=== PATIENT | female | born 1970 | race Caucasian/White ===

== ENCOUNTER → 2016-12-11 | Outpatient (CLI) | payer OTHER | LOC: FIMAGING 10:00 | PROVIDERS: ATTEND Family Medicine | DX: Z12.31 Encounter for screening mammogram for malignant neoplasm of breast (principal); Z80.3 Family history of malignant neoplasm of breast | CPT/HCPCS: G0202 ==

== ENCOUNTER → 2017-01-14 | Outpatient (CLI) | payer OTHER | LOC: BMCIMAGING 15:42 | PROVIDERS: ATTEND Family Medicine | DX: M79.9 Soft tissue disorder, unspecified (principal) ==

== ENCOUNTER 2018-01-05 17:32 | Emergency (ER) | payer OTHER ==
--- NOTE | 2018-01-05 17:50 | EDPHY ---
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 She is complaining of pain to the 2nd 3rd 4th MCP as well as pain at the wrist reproducible with palpation post range of motion. PRIMARY CARE PROVIDER: REVIEW OF SYSTEMS: A ten point review of systems was performed and is negative with the exception of the items mentioned in the HPI PHYSICAL EXAM (Prior to examination, patient consented to physical exam, hands were washed and my usual and customary physical exam procedures followed) 1) GENERAL: Well-developed, well-nourished, alert and oriented. Appears to be in no acute distress. 2) HEAD: Normocephalic 3) HEENT: Pupils equal, round, reactive to light bilaterally. 4) LUNGS: Breathing comfortably. 5) MUSCULOSKELETAL: Soft compartments. No visible abnormality such as erythema or ecchymosis. She is tender to palpation to the dorsal aspect of the wrist. MCPs are nontender Normal coloration. No shortening no malrotation. 6) SKIN: Normal coloration 7) VASCULAR: pulses and cap refill present are brisk 8) NEUROLOGIC: Radial, ulnar, median nerve function intact with no deficits appreciated on exam DIFFERENTIAL DIAGNOSIS: in no particular order including but not limited to fracture, sprain, compartment syndrome Procedure: Splint A Velcro volar splint was applied by ER communication technician. After application of the splint I returned and re-examined the patient. The splint was adequately immobilizing the joint and distal to the splint the patient's circulation and sensation were intact. Patient shows no signs of compartment syndrome. Was given orthopedic precautions. Smoking Status: Never smoked Constitutional: Initial Vital Signs Temperature (C) 36.7 C 01/05/18 17:44 Heart Rate 72 01/05/18 17:44 Respiratory Rate 18 01/05/18 17:44 Blood Pressure 122/95 H 01/05/18 17:44 O2 Sat (%) 100 01/05/18 17:44 O2 Delivery Mode Room Air Allergies/Adverse Reactions: Sulfa (Sulfonamide Antibiotics) Allergy (Verified 01/05/18 17:51) OPIOIDS Allergy (Unknown, Uncoded 01/05/18 17:51) Home Medications: Medication Instructions Recorded Levothyroxine 07/26/15 MDM/Departure - [facility] Imaging Results: Imaging Impressions Forearm X-Ray 01/05/18 17:42 Impression: Negative for fracture. 3 Views Right Hand: Clinical Indications: Pain following trauma. Findings: A fracture or other acute osseous abnormality is not identified. The bone alignment is normal. The soft tissues are unremarkable. Impression: Right hand negative for fracture. Hand X-Ray 01/05/18 17:42 Impression: Negative for fracture. 3 Views Right Hand: Clinical Indications: Pain following trauma. Findings: A fracture or other acute osseous abnormality is not identified. The bone alignment is normal. The soft tissues are unremarkable. Impression: Right hand negative for fracture. Images reviewed myself ED Course/Re-evaluation: Patient is a work related injury secondary to being ramp by a goat earlier today. No definitive fracture on x-ray. She has been splinted, given my usual customary orthopedic precautions instructions, recommend orthopedic follow-up, recommend work comp follow-up, elevation, Tylenol Motrin for pain. She feels comfortable being discharged. I saw this patient independently based on established practice protocols. Care of patient under supervision of secondary supervising physician Dr Rothman . - Depart Disposition: Home, Routine, Self-Care Clinical Impression: Right wrist sprain Qualifiers: Encounter type: initial encounter Qualified Code(s): S63.501A - Unspecified sprain of right wrist, initial encounter Condition: Good Instructions: Wrist Injury (ED) Additional Instructions: Return to the ER immediately if you experience discoloration, have worsening pain, numbness, tingling, or any other symptoms that concern you. If you received x-rays in the emergency department today, be advised, that ligamentous , tendon, muscular, and other non-bony injury cannot be fully ruled out. Try to keep your affected extremity elevated above the level of your chest, and keep cold packs on the affected area, for the next 48 hours. Stand Alone Forms: Work Comp Follow Up Referrals: Boris Chang MD [Medical Doctor] - As per Instructions
[2018-01-05 17:51] VITALS: BP 122/95
== END 2018-01-05 18:40 | disposition home or self-care (01) ==
DX: S63.501A Unspecified sprain of right wrist, initial encounter (principal); W55.32XA Struck by other hoof stock, initial encounter; Y99.0 Civilian activity done for income or pay; Y92.9 Unspecified place or not applicable; Y93.9 Activity, unspecified
CPT/HCPCS: L3984

== ENCOUNTER → 2018-07-01 | Outpatient (CLI) | payer OTHER | LOC: FIMAGING 15:07 | PROVIDERS: ATTEND Family Medicine | DX: Z12.31 Encounter for screening mammogram for malignant neoplasm of breast (principal) ==